=== PATIENT | female | born 1955 | race Caucasian/White ===

== ENCOUNTER → 2021-02-20 03:22 | Outpatient (CLI) | payer MEDICARE, SELFPAY ==
[2021-02-20 19:45] LABS: SARS-CoV-2 RNA PCR Negative
== END ==
PROVIDERS: Visit Provider Internal Medicine Gastroenterology
DX: Z01.812 Encounter for preprocedural laboratory examination (principal); Z20.822 Contact with and (suspected) exposure to COVID-19
CPT/HCPCS: C9803; U0003; U0005

== ENCOUNTER 2021-02-24 01:07 | Day surgery (SDC) | payer MEDICARE, SELFPAY ==
[2021-02-16 13:07] VITALS: BMI 22.5
[2021-02-24 08:47] VITALS: BP 127/68; PULSE 67; TEMP 36.8; O2SAT 100
[2021-02-24] MEDS: LACTATED RINGERS 1,000 ML 150 ML IV CONT (09:09)
--- NOTE | 2021-02-24 09:19 | P.PNAN_ITS ---
Anes - Initial Pre Proc Eval Procedure: Operation Date: 02/24/21 09:30 Proposed Procedures p Screening Colonoscopy - Souleymane Bettencourt MD Date/Time: 02/24/21 09:19 Surgeon: Souleymane Bettencourt MD Pre Op Diagnosis: hx colon polyp, family hx colon CA Patient Data Age: 65 Gender: F Height: 5 ft 5 in Weight: 62.6 kg Last Vital Signs Temp 98.3 F 02/24/21 08:47 Pulse 67 02/24/21 08:47 BP 127/68 02/24/21 08:47 Pulse Ox 100 02/24/21 08:47 Allergies Allergy/AdvReac Type Severity Reaction Status Date / Time PCN AdvReac Mild Nausea Uncoded 02/24/21 08:45 Home Medications Medication Instructions Recorded Confirmed Type Ca lros-L2-wyduxp-inos-silicon 1 tablet PO DAILY 02/16/21 02/16/21 History [Bone Density Calcium + D] ascorbic acid (vitamin C) [Vitamin 500 mg PO DAILY 02/16/21 02/16/21 History C] cetirizine [Zyrtec] 10 mg PO DAILY 02/16/21 02/16/21 History epyndwxy-qmn-sxot-FA-lutein 1 tablet PO DAILY 02/16/21 02/16/21 History [Centrum Silver Women] red yeast rice 1,200 mg PO DAILY 02/16/21 02/16/21 History saffron extract 50 mg PO HS 02/16/21 02/16/21 History Patient hx anesthesia problems: none Family hx anesthesia problems: none [facility] Past Medical History Medical History (Updated 02/24/21 @ 09:15 by Sage Angela MD) Hyperlipidemia Social History Social History Smoking status: Never smoker Alcohol intake: current Alcohol use details: rarely Living arrangements: with family Spiritual care concerns: No Anes - Eval Final PreProcedure Day of Procedure 02/24/21 09:19 Patient weight: normal Heart: regular rate and rhythm Lungs: clear to auscultation Airway: Mallampati scale class II Neurological: alert and oriented Last oral intake: >/= 8 hours ASA classification: II Emergent: no Anesthetic plan: proceed Anesthesia type and monitoring: general GIVS and standard monitoring Informed Consent: The patient's anesthetic plan and its attendant risks and benefits were discussed with the patient/family/POA. Questions were solicited and answers provided to the satisfaction of the patient/family/POA.
--- NOTE | 2021-02-24 09:33 | WPDGICN ---
Assessment and Plan Assessment and plan (1) History of colon polyps: Code(s): Z86.010 - Personal history of colonic polyps Status: Acute Assessment and Plan: Patient has had colon polyps on previous colonoscopy. surveillance colonoscopy at 5 year intervals is advised. (2) Family history of colon cancer in father: Code(s): Z80.0 - Family history of malignant neoplasm of digestive organs Status: Acute Assessment and Plan: Patient's father with colon cancer. For this reason colonoscopy at 5 year intervals advised. GI Consult Note Consult date/time: 02/24/21 09:33 HPI: Tamika Olivares is a 65 year old female Presents for surveillance colonoscopy. Patient states that her current weight appetite bowel movements are normal. She denies abdominal pain. She has had no bleeding. She does have a prior history of colon polyps. Family history is significant her father with colon cancer. Patient states her last exam was approximately 5 years ago. She denies abdominal pain or bleeding at the present time. Review of Systems Review of Systems: All systems reviewed & are unremarkable except as noted in HPI and below PMFSH Past Medical History Medical History (Updated 02/24/21 @ 09:34 by Souleymane Bettencourt MD) Hyperlipidemia Social History Social History Smoking status: Never smoker Alcohol intake: current Alcohol use details: rarely Living arrangements: with family Spiritual care concerns: No Meds Home Medications and Allergies Home Medications Medication Instructions Recorded Confirmed Type Ca xmyl-N7-kozeyh-inos-silicon 1 tablet PO DAILY 02/16/21 02/16/21 History [Bone Density Calcium + D] ascorbic acid (vitamin C) [Vitamin 500 mg PO DAILY 02/16/21 02/16/21 History C] cetirizine [Zyrtec] 10 mg PO DAILY 02/16/21 02/16/21 History hjtxbpnt-jkq-ilhq-FA-lutein 1 tablet PO DAILY 02/16/21 02/16/21 History [Centrum Silver Women] red yeast rice 1,200 mg PO DAILY 02/16/21 02/16/21 History saffron extract 50 mg PO HS 02/16/21 02/16/21 History Allergies Allergy/AdvReac Type Severity Reaction Status Date / Time PCN AdvReac Mild Nausea Uncoded 02/24/21 08:45 Vital Signs Vital Signs - 24 hr 02/24/21 08:47 Temperature 98.3 F Pulse Rate 67 Blood Pressure 127/68 Pulse Oximetry 100 Exam Narrative: Exam Narrative: Physical exam reveals patient be alert. Vital signs stable. HEENT exam is unremarkable. Lungs are clear to auscultation and percussion. Heart is without murmur or extra sounds. Abdominal exam bowel sounds are present soft nontender with no organomegaly. Digital external rectal exam is normal.
[2021-02-24 10:05] VITALS: BP 95/53; PULSE 71; RESP 19; O2SAT 96
[2021-02-24 10:15] VITALS: BP 109/66; PULSE 74; RESP 20; O2SAT 98
[2021-02-24 10:25] VITALS: BP 109/65; PULSE 77; RESP 17; O2SAT 98
== END 2021-02-24 10:33 | disposition home or self-care (01) ==
PROVIDERS: Visit Provider Internal Medicine Gastroenterology
PROC: 0DJD8ZZ Inspection of Lower Intestinal Tract, Via Natural or Artificial Opening Endoscopic (ICD-10-PCS; CPT 45378; principal; 2021-02-24 09:30)
DX: Z12.11 Encounter for screening for malignant neoplasm of colon (principal); K64.8 Other hemorrhoids; Z80.0 Family history of malignant neoplasm of digestive organs; Z86.010 Personal history of colon polyps; E78.5 Hyperlipidemia, unspecified
CPT/HCPCS: G0105; J2001; J2704; J7120

== ENCOUNTER → 2023-05-31 12:20 | Outpatient (CLI) | payer MEDICARE, SELFPAY ==
--- NOTE | ~2023-05-31 | DEXA_ITS ---
Bone Density Report Name: HORACE ENCARNACION Age: 67 Sex: Female Ethnicity: White Date of : 1955 Indication: osteopenia; parental hip fracture; postmenopausal Referring Provider: NISSA VIZCAINO Study: Bone densitometry was performed. Exam Date: May 31, 2023 Accession number: [id number] Bone Density: Region BMD T-score Z-score Classification AP Spine (L1-L4) 0.831 -2.0 0.1 Osteopenia Femoral Neck (Left) 0.704 -1.3 0.5 Osteopenia Total Hip (Left) 0.821 -1.0 0.5 Normal Femoral Neck (Right) 0.679 -1.5 0.2 Osteopenia Total Hip (Right) 0.788 -1.3 0.2 Osteopenia Total Hip Mean 0.805 -1.2 0.4 Osteopenia World Health Organization criteria for BMD impression classify patients as: Normal (T-score at or above -1.0), Osteopenia (T-score between -1.0 and -2.5), or Osteoporosis (T-score at or below -2.5). 10-year Fracture Risk(1): Major Osteoporotic Fracture 15% Hip Fracture 2.9% Reported Risk Factors: [place] (), Neck BMD=0.679, BMI=23.5, parental fracture (1) FRAX(R) Version 3.08. Fracture probability calculated for an untreated patient. Fracture probability may be lower if the patient has received treatment. Previous Exams: Region Exam Age BMD T-score BMD Change BMD Change Date g/cm2 vs Baseline vs Previous AP Spine(L1-L4) 05/31/2023 67 0.831 -2.0 -0.178* -0.043* 04/09/2019 63 0.874 -1.6 -0.135* -0.006 03/20/2017 61 0.881 -1.5 -0.128* 0.005 03/16/2015 59 0.876 -1.6 -0.133* -0.041* 03/11/2013 57 0.917 -1.2 -0.093* 0.013 03/07/2011 55 0.904 -1.3 -0.105* -0.105* 02/25/2008 52 1.009 -0.3 Total Hip(Left) 05/31/2023 67 0.821 -1.0 -0.076* 0.040* 04/09/2019 63 0.781 -1.3 -0.116* -0.027 03/20/2017 61 0.808 -1.1 -0.089* -0.021 03/16/2015 59 0.829 -0.9 -0.068* 0.019 03/11/2013 57 0.810 -1.1 -0.087* -0.029* 03/07/2011 55 0.839 -0.8 -0.058* -0.058* 02/25/2008 52 0.897 -0.4 Total Hip(Right) 05/31/2023 67 0.788 -1.3 -0.151* -0.010 04/09/2019 63 0.798 -1.2 -0.141* -0.024 03/20/2017 61 0.822 -1.0 -0.117* -0.043* 03/16/2015 59 0.865 -0.6 -0.074* 0.048* 03/11/2013 57 0.817 -1.0 -0.122* -0.058* 03/07/2011 55 0.875 -0.6 -0.064* -0.064* 02/25/2008 52 0.939 0.0 *Denote
--- NOTE | ~2023-05-31 | MM_ITS ---
EXAMINATION: MM screening coral BI w trell HISTORY: Screening mammogram TECHNIQUE: Craniocaudal and mediolateral oblique 3-D tomosynthesis images were obtained and synthetic 2-D images were generated. CAD analysis was submitted and interpreted. COMPARISON: 04/09/2019, 03/22/2018 bilateral screening mammogram examinations BREAST PARENCHYMAL COMPOSITION: There are scattered areas of fibroglandular density. FINDINGS: There is no evidence of suspicious mass, calcification, or architectural distortion to sugg est malignancy in either breast. There has been no suspicious interval change. IMPRESSION: 1. No mammographic evidence of malignancy. 2. Recommend routine screening mammography in one year. BI-RADS Category 1: Negative Reviewed, dictated and finalized at location A.
== END ==
DX: Z12.31 Encounter for screening mammogram for malignant neoplasm of breast (principal); Z78.0 Asymptomatic menopausal state; M85.88 Other specified disorders of bone density and structure, other site; M85.852 Other specified disorders of bone density and structure, left thigh; M85.851 Other specified disorders of bone density and structure, right thigh
CPT/HCPCS: 77063; 77067; 77080